=== PATIENT | male | born 1975 | race Caucasian/White ===

== ENCOUNTER 2025-03-22 13:21 | Inpatient (IN) ==
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
[2025-03-22] MEDS: KETOROLAC TROMETHAMINE 15 MG/ML VIAL IV STA (13:38)
[2025-03-22] MEDS: SODIUM CHLORIDE 0.9% 1,000 ML IV STA (13:38)
[2025-03-22 13:51] LABS: Hematocrit (blood only) 44.1 % (42.0-52.0); Hemoglobin 15.1 g/dl (14.0-18.0); Immature Granulocytes # (auto) 0.11 K/uL (0.01-0.20); Immature Granulocytes % (auto) 0.6 %; Mean Corpuscular Hemoglobin 29.4 pg (25.0-34.0); Mean Corpuscular Volume 85.8 fL (80.0-100.0); Platelet Count 246 K/uL (130-400); RDW Standard Deviation 40.0 fL (36.4-46.3); Red Blood Count 5.14 M/uL (4.70-6.10); White Blood Count 18.42 K/ul (4.8-10.8)
[2025-03-22 14:07] LABS: Alanine Aminotransferase 26.0 U/L (7-52); Albumin Globulin Ratio 1.8 (0.9-2); Alkaline Phosphatase 49.0 U/L (34-104); Anion Gap 6.0 (3-11); Bilirubin,Total 0.5 mg/dl (0.2-1.0); Blood Urea Nitrogen 21.0 mg/dl (6-23); Calcium 9.0 mg/dl (8.6-10.3); Carbon Dioxide 28.0 mmol/L (21-32); Chloride 106.0 mmol/L (98-107); Creatinine Clr Calc Pharmacy 80.7 ml/min; Globulin 2.5 gm/dl (2.5-4.0); Glucose 129.0 mg/dl (70-99(Fasting)); Lipase 20.0 U/L (11-82); Potassium 3.7 mmol/L (3.5-5.1); Sodium 140.0 mmol/L (136-145); Total Protein 7.1 gm/dl (6.0-8.3)
[2025-03-22] MEDS: OPTIRAY 320 100ml IV ONE (14:37)
--- NOTE | 2025-03-22 14:58 | CT Scan Report ---
CT lumbar spine w con CLINICAL HISTORY: pain COMPARISON STUDY: None FINDINGS: No lumbar spine fracture or subluxation seen. There is mild degenerative disc disease and f acet degeneration at the lower lumbar spine. There is mild neural foraminal narrowing at L4-5 and L5- S1 bilaterally. L5 is transitional with a pseudoarthrosis on the right. No significant central canal narrowing seen. IMPRESSION: 1. No lumbar spine fracture seen. 2. Mild lower lumbar degenerative changes. ACT 112: Negative or not required by law. Electronically signed by: Silvano Wild M.D. 03/22/2025 2:57 PM
--- NOTE | 2025-03-22 15:03 | CT Scan Report ---
CT SCAN OF THE ABDOMEN AND PELVIS WITH IV CONTRAST CLINICAL HISTORY: Sudden onset left flank pain. COMPARISON STUDY: None. TECHNIQUE: Following the IV administration of 94 cc of Optiray 320, CT scan of the abdomen and pelvis is performed from the lung bases to the proximal femora. Images are reviewed in the axial, sagittal, and coronal planes. IV contrast was administered without complication. A dose lowering technique was utilized adhering to the principles of ALARA. FINDINGS: Visual portions of the lung bases are unremarkable. No pneumatosis, free air or portal veno us gas is present. Several subcentimeter hypodense hepatic lesions are too small to characterize but likely benign. Spleen, adrenal glands, right kidney and pancreas are normal. There is no biliary or p ancreatic ductal dilatation. There is no peripancreatic or pericholecystic infiltration. Delayed left nephrogram is noted with mild left hydronephrosis. There is a 4 mm distal left ureteral calculus. Mo derate left perinephric and periureteral fluid is present. No additional urinary calculi are present. No evidence for a bowel obstruction. The appendix is normal. No lymphadenopathy. Major vasculature i s patent. IMPRESSION: 1. 4 mm distal left ureteral calculus with mild left hydronephrosis and delayed left nephrogram. Mode rate left perinephric and periureteral fluid. 2. No additional urinary calculi. ACT 112: Negative or not required by law. Electronically signed by: Prosper Darnell M.D. 03/22/2025 3:02 PM
[2025-03-22 15:25] LABS: Appearance Urine Clear (Clear); Bacteria Urine Automated None Seen (None Seen); Cast Urine Automated 0-2 /lpf (0-2); Epithelial Cell Urine Auto 0-2 /hpf (0-2); Glucose Urine UA Negative (Negative); RBC Urine Automated >20 /hpf (0-2); WBC Urine Automated 0-5 /hpf (0-5)
[2025-03-22] MEDS: cefTRIAXone SODIUM 2,000 MG/50 ML BAG IV STA (16:22)
--- NOTE | 2025-03-22 17:43 | History & Physical Report ---
Date of Service March 22, 2025 Assessment & Plan (1) Ureteral stone with hydronephrosis: (2) UTI (urinary tract infection): Plan This is a 49 y/o male with no significant PMH who presented to the ED today via EMS with abrupt onset of severe left flank pain. Work-up in the ED revealed an elevated WBC count at 18.42. CT abd/pel showed a 4 mm distal left ureteral calculus with mild left hydronephrosis and delayed left nephrogram; moderate left perinephric and periureteral fluid. Pt received morphine 20 mg IV en route to ED with resultant hypoxia on initial presentation but improvement in his pain. Pt referred for admission due to concern for infected ureteral stone for IV antibiotics and pain control. #Left distal ureteral calculus with mild left hydronephrosis #Leukocytosis - concern for early infection, pt afebrile, no tachycardia or hypotension UA showed trace protein, 2+ ketones, 3+ blood, trace leuk esterase but negative for nitrites; 0-5 WBC/hpf, >20 RBC/hpf. - Admit to med telemetry - Continue IV ceftriaxone started in the ED - Consult urology - spoke with Dr. Taylor who is on-call. Will make pt NPO after midnight. If pt deteriorates overnight, he will need to be notified - Tamsulosin to potentially help facilitate stone passage - Labs in the AM - CBC, BMP - IV Toradol for pain control #Hypoxia due to large dose of narcotics received en route to the ED - Wean O2 - respiratory status improved, no lethargy or mentation changes on evaluation at present Several subcentimeter hypodense hepatic lesions on CT that are too small to characterize but likely benign per radiology report. Will need to establish with a PCP outpatient Pt seen and reviewed with collaborating physician, Dr. Westfall. Plan of care discussed and as outlined above. Code status: full code DVT prophylaxis: SCDs I spent a total of 65 minutes coordinating, documenting, and providing care for this patient excluding time spent in the performance of separately billed services or time spent by another provider/QHP. Rhoda Granados PA-C History of Present Illness Chief Complaint: left flank pain Primary Care Provider: NO PCP This is a 49 y/o male with no significant PMH who presented to the ED today via EMS with abrupt onset of severe left flank pain. Pt reports he was in his usual state of health this morning when he woke up. He was sitting doing paperwork when he suddenly developed pain in his left lower back/flank that he describes as a sharp burning pain. The pain rapidly increased in severity to the point he had an episode of emesis and broke out in a sweat. He describes the pain as more severe than when he had an open fracture of his right forearm. Due to the severity of his pain, EMS was called. Reportedly pt received 20 mg of IV morphine en route to the hospital, which did help with his pain. 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 He has no prior history of kidney stones but reports that his mom has a history of nephrolithiasis. He denies fevers, dysuria, hematuria, changes in bowel patterns, cough, congestion, chest pain, palpitations, or dyspnea. Allergies Allergy/AdvReac Type Severity Reaction Status Date / Time No Known Allergies Allergy Unknown Verified 02/24/05 09:32 Home Medications Medication Instructions Recorded Confirmed Type No Known Home Medications 03/22/25 03/22/25 History Past Med/Surg History Problem List (Updated 03/22/25 @ 18:15 by Tiana Granados PA-C) UTI (urinary tract infection) Ureteral stone with hydronephrosis Medical History (Updated 03/22/25 @ 18:15 by Tiana Granados PA-C) Right forearm fracture farming accident Surgical History (Updated 03/22/25 @ 17:41 by Tiana Granados PA-C) History of surgery on arm ORIF fracture Family History (Updated 03/22/25 @ 17:21 by Tiana Granados PA-C) Mother Kidney stones Lymphoma Hypertension Sister Hypertension Social History (Updated 03/22/25 @ 17:41 by Tiana Granados PA-C) Smoking Status: Never smoker Hx Alcohol Use: Yes current occupational status: employed current occupation: car[employer] Feels Safe at Home: Yes Review of Systems Review of Systems: All systems reviewed & are unremarkable except as noted in Subjective Physical Exam Physical Exam: General: awake, alert, NAD HEENT: no scleral icterus, moist oral mucosa Neck: supple, trachea midline Heart: RRR Lungs: CTA bilaterally Abdomen: soft, NT, +BS, no CVA tenderness bilaterally Extremities: no pedal edema, distal pulses intact and equal Skin: warm, dry, no jaundice or rashes Results & Data Results & Data Vital Signs (Past 12 Hours) Vital Signs Temp Pulse Pulse Resp BP BP Pulse Ox 03/22/25 14:30 155/101 H 03/22/25 14:21 54 L 15 100 03/22/25 14:17 100 03/22/25 14:17 87 L 03/22/25 14:05 60 03/22/25 14:02 87 L 03/22/25 14:01 53 L 16 93 03/22/25 14:01 56 L 16 146/91 H 93 03/22/25 13:26 36.4 C L 59 L 20 157/97 H 100 O2 Del Method O2 Flow Rate 03/22/25 14:30 03/22/25 14:21 Nasal Cannula 2 03/22/25 14:17 Nasal Cannula 2 03/22/25 14:17 Room Air 03/22/25 14:05 03/22/25 14:02 Room Air, Nasal Cannula 0 03/22/25 14:01 Room Air 03/22/25 14:01 03/22/25 13:26 Room Air Laboratory Results Lab Results 03/22/25 03/22/25 Range/Units 13:35 15:05 WBC 18.42 H (4.8-10.8) K/ul RBC 5.14 (4.70-6.10) M/uL Hgb 15.1 (14.0-18.0) g/dl Hct 44.1 (42.0-52.0) % MCV 85.8 (80.0-100.0) fL MCH 29.4 (25.0-34.0) pg MCHC 34.2 (32.0-36.0) g/dL RDW Std Deviation 40.0 (36.4-46.3) fL RDW Coeff of Michelle 12.8 (11.5-14.5) % Plt Count 246 (130-400) K/uL MPV 9.6 (9.4-12.4) fL Immature Gran % (Auto) 0.6 % Neut % (Auto) 85.4 % Lymph % (Auto) 8.6 % [place] % (Auto) 4.8 % Eos % (Auto) 0.3 % Baso % (Auto) 0.3 % Neut # (Auto) 15.74 H (1.40-6.50) K/uL Lymph # (Auto) 1.58 (1.20-3.40) K/uL Harding # (Auto) 0.88 H (0.11-0.59) K/uL Eos # (Auto) 0.06 (0.00-0.50) K/uL Baso # (Auto) 0.05 (0.00-0.20) K/uL Immature Gran # (Auto) 0.11 (0.01-0.20) K/uL Sodium 140 (136-145) mmol/L Potassium 3.7 (3.5-5.1) mmol/L Chloride 106 (98-107) mmol/L Carbon Dioxide 28 (21-32) mmol/L Anion Gap 6 (3-11) BUN 21 (6-23) mg/dl Creatinine 1.06 (0.6-1.4) mg/dl Est Cr Clr Drug Dosing 80.7 ml/min eGFR 86.03 BUN/Creatinine Ratio 19.8 (10-20) Glucose 129 H (70-99(Fasting)) mg/dl Calcium 9.0 (8.6-10.3) mg/dl Total Bilirubin 0.5 (0.2-1.0) mg/dl AST 25 (13-39) U/L ALT 26 (7-52) U/L Alkaline Phosphatase 49 (34-104) U/L Total Protein 7.1 (6.0-8.3) gm/dl Albumin 4.6 (3.4-5.0) gm/dl Globulin 2.5 (2.5-4.0) gm/dl Albumin/Globulin Ratio 1.8 (0.9-2) Lipase 20 (11-82) U/L Urine Color Dark Yellow Urine Appearance Clear (Clear) Urine pH 7.0 (4.5-7.5) Ur Specific [place] 1.032 H (1.000-1.030) Urine Protein Trace H (Negative) Urine Glucose (UA) Negative (Negative) Urine Ketones 2+ H (Negative) Urine Blood 3+ H (Negative) Urine Nitrite Negative (Negative) Urine Bilirubin Negative (Negative) Urine Urobilinogen Negative (Negative) Ur Leukocyte Esterase Trace H (Negative) Urine WBC (Auto) 0-5 (0-5) /hpf Urine RBC (Auto) >20 H (0-2) /hpf U Hyaline Cast (Auto) 0-2 (0-2) /lpf U Epithel Cells (Auto) 0-2 (0-2) /hpf Urine Bacteria (Auto) None Seen (None Seen) Urine Comment Diagnostic Findings Abdomen/Pelvis CT 03/22/25 13:26 CT SCAN OF THE ABDOMEN AND PELVIS WITH IV CONTRAST CLINICAL HISTORY: Sudden onset left flank pain. COMPARISON STUDY: None. TECHNIQUE: Following the IV administration of 94 cc of Optiray 320, CT scan of the abdomen and pelvis is performed from the lung bases to the proximal femora. Images are reviewed in the axial, sagittal, and coronal planes. IV contrast was administered without complication. A dose lowering technique was utilized adhering to the principles of ALARA. FINDINGS: Visual portions of the lung bases are unremarkable. No pneumatosis, free air or portal venous gas is present. Several subcentimeter hypodense hepatic lesions are too small to characterize but likely benign. Spleen, adrenal glands, right kidney and pancreas are normal. There is no biliary or pancreatic ductal dilatation. There is no peripancreatic or pericholecystic infiltration. Delayed left nephrogram is noted with mild left hydronephrosis. There is a 4 mm distal left ureteral calculus. Moderate left perinephric and periureteral fluid is present. No additional urinary calculi are present. No evidence for a bowel obstruction. The appendix is normal. No lymphadenopathy. Major vasculature is patent. IMPRESSION: 1. 4 mm distal left ureteral calculus with mild left hydronephrosis and delayed left nephrogram. Moderate left perinephric and periureteral fluid. 2. No additional urinary calculi. ACT 112: Negative or not required by law. Electronically signed by: Prosper Darnell M.D. 03/22/2025 3:[address] 03/22/25 13:47 CT lumbar spine w con CLINICAL HISTORY: pain COMPARISON STUDY: None FINDINGS: No lumbar spine fracture or subluxation seen. There is mild degenerative disc disease and facet degeneration at the lower lumbar spine. There is mild neural foraminal narrowing at L4-5 and L5-S1 bilaterally. L5 is transitional with a pseudoarthrosis on the right. No significant central canal narrowing seen. IMPRESSION: 1. No lumbar spine fracture seen. 2. Mild lower lumbar degenerative changes. ACT 112: Negative or not required by law. Electronically signed by: Silvano Wild M.D. 03/22/2025 2:57 PM Medications Administered Discontinued Medications Sodium Chloride (Nss) 1,000 mls @ 999 mls/hr IV .Q1H1M STA Stop: 03/22/25 14:26 Last Infusion: 03/22/25 15:36 Dose: Infused Documented By: Admin: 03/22/25 13:38 Dose: 999 mls/hr Documented By: CARLI Ceftriaxone Sodium (Rocephin) 2,000 mg in 50 mls @ 100 mls/hr IV NOW STA Stop: 03/22/25 16:08 Last Infusion: 03/22/25 16:52 Dose: Infused Documented By: Admin: 03/22/25 16:22 Dose: 100 mls/hr Documented By: ROSIO Ioversol (Optiray 320 100ml) 94 ml IV ONCE ONE Stop: 03/22/25 14:38 Last Admin: 03/22/25 14:37 Dose: 94 ml Documented By: GEORGI Ketorolac Tromethamine (Ketorolac Tromethamine 15 Mg/Ml Vial) 10 mg IV NOW STA Stop: 03/22/25 13:27 Last Admin: 03/22/25 13:38 Dose: 10 mg Documented By: CARLI Supervising Physician Co-Signing Physician Notes Attending addendum: The patient was seen and examined in the emergency room He was admitted with acute left-sided abdominal pain that was going down to the groin and noted to have ureteric stone with obstruction Denies any fever and chills and has had nausea but no vomiting On examination Lying in bed very anxious Hemodynamically stable and afebrile Chest was clear to auscultation bilaterally HeartS1-S2, regular Abdomenmildly tender left lower quadrant and left renal angle is tender to palpate Extremities negative for any edema His admission labs and imaging studies noted Noted to hide white count and a 4 mm left distal ureteral calculus with hydronephrosis Assessment and plan Obstructive uropathy with likely infection Started on intravenous ceftriaxone and also IV fluid and was advised to drink more fluid Urology consulted Agree with assessment and plan as outlined above by Joie Granados PA-C and take the full responsibility of care in the hospital Dr Isidoro Westfall (2) UTI (urinary tract infection) Hematuria presence: without hematuria Urinary tract infection type: site unspecified Qualified Code(s): N39.0 - Urinary tract infection, site not specified
[2025-03-22] MEDS: SODIUM CHLORIDE 0.9% 1,000 ML IV SCH (19:21)
--- NOTE | 2025-03-22 19:52 | Urology Consultation ---
Date of Consultation March 22, 2025 Assessment & Plan (1) Ureteral stone with hydronephrosis: Patient has been admitted on hospital service. From a urologic standpoint we recommend the following: Provide analgesics Provide antiemetics Provide IV fluid for hydration Flomax has been initiated for expulsive therapy and should continue Urine should be strained and any kidney stones he passes should be saved for analysis There is concern the patient may have an underlying urinary tract infection. He has been placed on empiric Rocephin and this can be tailored based on pending culture results Patient to be made n.p.o. after midnight tonight. If he is unable to pass a kidney stone and is still giving him a great deal of pain consideration be given for cystoscopic intervention At the present time the patient is nontoxic-appearingshe is normotensive without tachycardia or fever. He also does not exhibit acute kidney injury therefore I feel a trial of conservative passage is warranted Additional recommendations be forthcoming based on his clinical course as it unfolds History of Present Illness Reason for Consultation: Nephrolithiasis History of Present Illness Is a 49-year-old male who presented to the emergency department secondary to left-sided flank pain. He says that the pain began approximate 9:00 AM this morning. He notes that the pain radiates to the front of his abdomen to his scrotum somewhat. He denies any dysuria or hematuria. Patient says he has not checked his temperature at home but he did have some sweats particular when he was having the pain. He has had occasional chills. He has no history of kidney stones before. Since arrival hospital the patient has had labs and imaging which I independently reviewed. Patient had a lumbar spine CT scan that showed no lumbar spine fractures seen. He also had a CT scan abdomen pelvis where he was noted to have a 4 mm distal left ureteral calculus with mild left hydronephro sis. Labs including CBC were white blood cell count was elevated 18.4. Hemoglobin and hematocrit as well as platelet count were normal. Chemistry profile showed sodium and potassium as well as the BUN and creatinine were normal. The urinalysis did have trace leukocyte Estrace but was otherwise not indicative of infection. At the time of my interview the patient's pain was well-controlled and he was in no distress. Allergies Allergy/AdvReac Type Severity Reaction Status Date / Time No Known Allergies Allergy Unknown Verified 02/24/05 09:32 Home Medications Medication Instructions Recorded Confirmed Type No Known Home Medications 03/22/25 03/22/25 History Patient History 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 Surgical History History of surgery on arm ORIF fracture Family History Mother Kidney stones Lymphoma Hypertension Sister Hypertension Social History Smoking Status: Never smoker Hx Alcohol Use: Yes current occupational status: employed current occupation: [employer] Feels Safe at Home: Yes Review of Systems Review of Systems: All systems reviewed & are unremarkable except as noted in HPI & below Physical Exam Constitutional: WD/WN, vitals as above Eyes: no conjunctival abnormality ENMT: Ears: no hearing impairment and no external ear abnormality Mouth: no oropharynx abnormality Neck: trachea midline Respiratory: normal respiratory effort; no respiratory distress and no labored breathing Cardiovascular: Rate/Rhythm: regular rate and regular rhythm Gastrointestinal (Abdomen): Abdomen is soft without distention. There is no rebound tenderness or guarding. There is no pain with palpation Musculoskeletal: No calf tenderness Skin: no rashes Neurologic: moves all extremities Psychiatric: A+Ox3, euthymic affect Genitourinary: At the time of my exam the patient did not have any CVA tenderness with percussion bilaterally Results & Data Vital Signs (Past 12 Hours) Vital Signs Temp Pulse Pulse Resp BP BP Pulse Ox 03/22/25 18:00 50 L 14 118/75 100 03/22/25 17:55 49 L 03/22/25 16:50 59 L 14 124/84 100 03/22/25 15:30 73 15 125/102 H 100 03/22/25 15:00 67 18 169/114 H 100 03/22/25 14:30 155/101 H 03/22/25 14:21 54 L 15 100 03/22/25 14:17 100 03/22/25 14:17 87 L 03/22/25 14:05 60 03/22/25 14:02 87 L 03/22/25 14:01 53 L 16 93 03/22/25 14:01 56 L 16 146/91 H 93 03/22/25 13:26 36.4 C L 59 L 20 157/97 H 100 O2 Del Method O2 Flow Rate 03/22/25 18:00 Nasal Cannula 2 03/22/25 17:55 03/22/25 16:50 Nasal Cannula 2 03/22/25 15:30 Nasal Cannula 2 03/22/25 15:00 03/22/25 14:30 03/22/25 14:21 Nasal Cannula 2 03/22/25 14:17 Nasal Cannula 2 03/22/25 14:17 Room Air 03/22/25 14:05 03/22/25 14:02 Room Air, Nasal Cannula 0 03/22/25 14:01 Room Air 03/22/25 14:01 03/22/25 13:26 Room Air PG Care Time/CCT Total # of Minutes Spent Total Time Spent with Patient: Total time spent is greater than 50% in coordination of care (as documented) at patient's floor/unit and/or counseling patient: Coding Level of Care Code 39004 IN/OBS CONSULT LVL 5,80M Diagnoses Ureteral stone with hydronephrosis N13.2
[2025-03-22 20:43] VITALS: RESP 18
[2025-03-22] MEDS ORDERED: ACETAMINOPHEN 500 MG TAB PO PRN (21:22)
[2025-03-22 22:20] VITALS: O2SAT 96
[2025-03-22] MEDS: TAMSULOSIN HCL 0.4 MG CAP PO SCH (22:56)
[2025-03-23] MEDS: KETOROLAC TROMETHAMINE 15 MG/ML VIAL IV PRN (01:29)
[2025-03-23 06:15] LABS: Hematocrit (blood only) 37.5 % (42.0-52.0); Hemoglobin 12.7 g/dl (14.0-18.0); Immature Granulocytes # (auto) 0.04 K/uL (0.01-0.20); Immature Granulocytes % (auto) 0.3 %; Mean Corpuscular Hemoglobin 29.7 pg (25.0-34.0); Mean Corpuscular Volume 87.6 fL (80.0-100.0); Platelet Count 206 K/uL (130-400); RDW Standard Deviation 42.2 fL (36.4-46.3); Red Blood Count 4.28 M/uL (4.70-6.10); White Blood Count 11.48 K/ul (4.8-10.8)
[2025-03-23 06:37] LABS: Anion Gap 5.0 (3-11); Blood Urea Nitrogen 16.0 mg/dl (6-23); Calcium 7.8 mg/dl (8.6-10.3); Carbon Dioxide 26.0 mmol/L (21-32); Chloride 107.0 mmol/L (98-107); Creatinine Clr Calc Pharmacy 121.1 ml/min; Glucose 104.0 mg/dl (70-99(Fasting)); Potassium 3.6 mmol/L (3.5-5.1); Sodium 138.0 mmol/L (136-145)
[2025-03-23] MEDS ORDERED: ONDANSETRON INJ 2 MG/ML 2 ML VIAL IV PRN (08:08)
--- NOTE | 2025-03-23 08:30 | Urology Progress Note ---
Date of Service March 23, 2025 Assessment & Plan (1) Ureteral stone with hydronephrosis: (2) Leukocytosis: Plan 49-year-old male with a 4 mm left distal ureteral calculus I had a long discussion with him about options. He could be discharged home on medical expulsive therapy. Discussed that he has roughly 60% chance of passing the stone but data says that this could be anytime over the next 30 days. Discussed indications for returning to the hospital, including worsening pain or fevers. Other option would be to have a stent placed but explained that stents can cause bothersome symptoms as well. Discussed there would be a low likelihood that we would remove the stone at this time and that he would likely need a second procedure in the following weeks. Patient's leukocytosis has improved so I suspect this was likely due to dehydration as he is not showing any signs of infection and his urinalysis was negative Ultimately, patient would like to try medical expulsive therapy and I recommend discharging him with Flomax and oxycodone. 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 Afebrile with stable vitals. Labs today show white count has down trended from 18-11, creatinine down trended from 1-0.8. Patient reports pain is improved this morning. Denies passage of stone but did not strain all of his voids. Physical Exam Physical Exam: General: Alert and oriented, no acute distress HEENT: Normocephalic, mucous membranes moist Pulmonary: Nonlabored respirations Abdomen: Nondistended Extremities: Moves all 4 spontaneously Neuro: No gross deficits Skin: Warm, dry, no rashes noted Results & Data Vital Signs (Past 12 Hours) Vital Signs Temp Pulse Pulse Resp BP BP Pulse Ox 03/22/25 22:08 36.5 C 79 18 166/90 H 96 03/22/25 20:43 48 L 18 115/75 99 O2 Del Method 03/22/25 22:08 Room Air 03/22/25 20:43 Room Air PG Care Time/CCT Total # of Minutes Spent Total Time Spent with Patient: Total time spent is greater than 50% in coordination of care (as documented) at patient's floor/unit and/or counseling patient: Coding Level of Care Code 95638 SUB INP/OBS CARE 2MIN Diagnoses Ureteral stone with hydronephrosis N13.2 Leukocytosis D72.829
[2025-03-23 08:36] VITALS: BP 124/67; PULSE 72; TEMP 98.1
--- NOTE | 2025-03-23 12:26 | Discharge Summary ---
Discharge Summary Date of Service March 23, 2025 Principal Dx & Hospital Course #1 = Principal Diagnosis (1) Ureteral stone with hydronephrosis: (2) UTI (urinary tract infection): Plan This is a 49 y/o male with no significant PMH who presented to the ED today via EMS with abrupt onset of severe left flank pain. Work-up in the ED revealed an elevated WBC count at 18.42. CT abd/pel showed a 4 mm distal left ureteral calculus with mild left hydronephrosis and delayed left nephrogram; moderate left perinephric and periureteral fluid. Pt received morphine 20 mg IV en route to ED with resultant hypoxia on initial presentation but improvement in his pain. Pt referred for admission due to concern for infected ureteral stone for IV antibiotics and pain control. #Left distal ureteral calculus with mild left hydronephrosis #Leukocytosis - concern for early infection, pt afebrile, no tachycardia or hypotension UA showed trace protein, 2+ ketones, 3+ blood, trace leuk esterase but negative for nitrites; 0-5 WBC/hpf, >20 RBC/hpf. - Admit to med telemetry - Continue IV ceftriaxone started in the ED - Consult urology - spoke with Dr. Taylor who is on-call. Will make pt NPO after midnight. If pt deteriorates overnight, he will need to be notified - Tamsulosin to potentially help facilitate stone passage - Labs in the AM - CBC, BMP - IV Toradol for pain control #Hypoxia due to large dose of narcotics received en route to the ED - Wean O2 - respiratory status improved, no lethargy or mentation changes on evaluation at present Several subcentimeter hypodense hepatic lesions on CT that are too small to characterize but likely benign per radiology report. Will need to establish with a PCP outpatient Pt seen and reviewed with collaborating physician, Dr. Westfall. Plan of care discussed and as outlined above. Code status: full code DVT prophylaxis: SCDs I spent a total of 65 minutes coordinating, documenting, and providing care for this patient excluding time spent in the performance of separately billed services or time spent by another provider/QHP. Rhoda Granados PA-C Notes For Next Care Provider his is a 49 y/o male with no significant PMH who presented to the ED today via EMS with abrupt onset of severe left flank pain. In ED, found to have 4mm renal stone, admitted to medicine. Urology consulted, recommended pain control and fluids, and conservative management. Reevaluation by urology resulted in recommendation for f/u outpatient, hydration, pain control, and medical therapy. On 03/23/2025 patient medically stable for discharge home. To do: [ ] f/u with urology outpatient Medication Changes From Visit -see below Admission HPI Per Admitting Provider This is a 49 y/o male with no significant PMH who presented to the ED today via EMS with abrupt onset of severe left flank pain. Pt reports he was in his usual state of health this morning when he woke up. He was sitting doing paperwork when he suddenly developed pain in his left lower back/flank that he describes as a sharp burning pain. The pain rapidly increased in severity to the point he had an episode of emesis and broke out in a sweat. He describes the pain as more severe than when he had an open fracture of his right forearm. Due to the severity of his pain, EMS was called. Reportedly pt received 20 mg of IV morphine en route to the hospital, which did help with his pain. 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 He has no prior history of kidney stones but reports that his mom has a history of nephrolithiasis. He denies fevers, dysuria, hematuria, changes in bowel patterns, cough, congestion, chest pain, palpitations, or dyspnea. Discharge Exam Gen: A&O 3 NAD HEENT: NCAT, EOMI, not icteric. External ears normal. No rhinorrhea. Moist mucous membranes. Neck: Supple, full range of motion, no observable masses, No meningeal sign. Lungs: No Respiratory distress. CV: RRR, no edema. Abdomen: Soft, nondistended, No rebound tenderness. MSK: No joint swelling, no redness. Skin: No rashes, petechiae, lesions. Normal color per patient. Neuro: Normal Gait, Grossly intact. Psych: Appropriate for situation. Updated Medication List Medication Instructions Recorded Confirmed Type ondansetron 4 mg disintegrating 4 mg PO Q4H PRN nausea and 03/23/25 Rx tablet vomiting #14 tabs oxycodone 5 mg tablet 5 mg PO Q4 PRN pain #20 tabs 03/23/25 Rx tamsulosin 0.4 mg capsule 0.4 mg PO HS #30 caps 03/23/25 Rx Hospital Stay Data Consultations 03/22/25 16:58 ED Decision to Admit Stat 03/22/25 21:22 Consult Urology Routine Diagnostic Imagining Performed 03/22/25 13:26 CT abd pelvis IV con only Stat 03/22/25 13:47 CT lumbar spine w con Stat Pending Results Patient Have Any Pending Studies at Discharge: No Discharge Instructions Given to Patient (Per Discharging Provider) 1. Please follow up with PCP and urology. 2. Take pain medication/symptom medications for any stone related symptoms. 3. Please stay very hydrated and avoid alcohol/dehydrating fluids. 4. Finish course of antibiotics. 5. Take medications as prescribed. Total Time Total Time Spent Total Time Spent (In Minutes): I spent a total of 35 minutes in direct patient care, including [id number] time with the patient and/or family, reviewing medical records, ordering and reviewing diagnostic tests, and coordinating care with other healthcare providers. This time includes: history taking, physical examination, medical decision making, counseling, ECG interpretation, imaging interpretation, lab interpretation, orders, and education, excluding time spent in the performance of separately billed services.
[2025-03-23] MEDS ORDERED: cefTRIAXone SODIUM 2,000 MG/50 ML BAG IV SCH (14:00)
== END 2025-03-23 11:10 | disposition home or self-care (01) | DRG 694 ==
LOC: ED 13:21 → 3N 17:45 → SUATTDRO 17:45 → 3N 20:43

== ENCOUNTER 2025-03-23 16:12 | Observation (INO) ==
[2025-03-23] MEDS: ONDANSETRON INJ 2 MG/ML 2 ML VIAL IV STA (16:26)
[2025-03-23] MEDS: ONDANSETRON INJ 2 MG/ML 2 ML VIAL ONE (16:26)
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
[2025-03-23] MEDS: KETOROLAC TROMETHAMINE 15 MG/ML VIAL IV ONE (16:29)
[2025-03-23 17:01] LABS: Hematocrit (blood only) 42.1 % (42.0-52.0); Hemoglobin 14.4 g/dl (14.0-18.0); Immature Granulocytes # (auto) 0.04 K/uL (0.01-0.20); Immature Granulocytes % (auto) 0.4 %; Mean Corpuscular Hemoglobin 29.9 pg (25.0-34.0); Mean Corpuscular Volume 87.5 fL (80.0-100.0); Platelet Count 243 K/uL (130-400); RDW Standard Deviation 41.9 fL (36.4-46.3); Red Blood Count 4.81 M/uL (4.70-6.10); White Blood Count 10.62 K/ul (4.8-10.8)
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
[2025-03-23 17:18] LABS: Anion Gap 6.0 (3-11); Blood Urea Nitrogen 17.0 mg/dl (6-23); Calcium 8.7 mg/dl (8.6-10.3); Carbon Dioxide 28.0 mmol/L (21-32); Chloride 105.0 mmol/L (98-107); Creatinine Clr Calc Pharmacy 92.5 ml/min; Glucose 121.0 mg/dl (70-99(Fasting)); Potassium 3.9 mmol/L (3.5-5.1); Sodium 139.0 mmol/L (136-145)
[2025-03-23] MEDS: LACTATED RINGER'S 1,000 ML IV SCH (19:25)
[2025-03-23] MEDS: cefTRIAXone SODIUM 2,000 MG/50 ML BAG IV SCH (19:26)
[2025-03-23] MEDS: TAMSULOSIN HCL 0.4 MG CAP PO SCH (21:34)
[2025-03-23] MEDS: KETOROLAC TROMETHAMINE 15 MG/ML VIAL IV SCH (21:36)
[2025-03-24] MEDS: HYDROmorphone INJ 0.5 MG/0.5 ML SYR IV PRN ×2 (01:18→09:55)
[2025-03-24] MEDS: ONDANSETRON INJ 2 MG/ML 2 ML VIAL IV PRN (06:33)
[2025-03-24] MEDS ORDERED: PROPOFOL IV EMULSION 10 MG/ML 20 ML VIAL IV ONE (09:08)
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
[2025-03-24] MEDS ORDERED: MIDAZOLAM HCL 1 MG/ML 2ML VIAL ONE (10:26)
[2025-03-24] MEDS ORDERED: ATROPINE SULFATE 0.1 MG/ML 10ML SYR IV PRN (10:27)
[2025-03-24] MEDS ORDERED: HYDROmorphone INJ 1 MG/ML SYRINGE IV PRN (10:27)
[2025-03-24] MEDS ORDERED: ONDANSETRON INJ 2 MG/ML 2 ML VIAL IV PRN (10:27)
--- NOTE | 2025-03-24 10:28 | Anesthesiology Consultation ---
Date of Service March 24, 2025 Assessment & Plan ASA ASA2 Proposed Anesthesia Anesthesia Type: General Risk / Benefits Reviewed With: PT / POA / Parent / Guardian, Accepts Plan and Informed Consent Obtained History Surgery Operation Date: 03/24/25 09:30 Proposed Procedures p Cystoscopy Retrograde(Left) - Buddy Loco MD Height/Weight Height: 6 ft Weight: 85.2 kg Allergies Allergy/AdvReac Type Severity Reaction Status Date / Time No Known Allergies Allergy Unknown Verified 02/24/05 09:32 Medications Home Medications Medication Instructions Recorded Confirmed Last Taken ondansetron 4 mg disintegrating 4 mg PO Q4H PRN nausea and 03/23/25 03/23/25 Unknown tablet vomiting #14 tabs oxycodone 5 mg tablet 5 mg PO Q4 PRN pain #20 tabs 03/23/25 03/23/25 Unknown tamsulosin 0.4 mg capsule 0.4 mg PO HS #30 caps 03/23/25 03/23/25 Unknown Active Medications Generic Name Dose Route Start Last Admin Trade Name Freq PRN Reason Stop Dose Admin Hydromorphone HCl 0.5 mg 03/24/25 09:24 03/24/25 09:55 Hydromorphone Inj 0.5 Mg/0.5 Ml Syr IV 04/06/25 17:11 0.5 mg Q2HWA PRN Administration Severe Pain (Scale 7, 8, 9,10) Lactated Ringer's 1,000 mls @ 125 mls/hr 03/23/25 17:15 03/24/25 03:11 Lr IV 03/26/25 17:14 125 mls/hr .Q8H DEEJAY Administration Ceftriaxone Sodium 2,000 mg in 50 mls @ 100 mls/hr 03/23/25 17:30 03/23/25 20:00 Rocephin IV 03/30/25 17:29 Infused Q24H DEEJAY Infusion Ondansetron HCl 4 mg 03/23/25 18:11 03/24/25 06:33 Ondansetron Inj 2 Mg/Ml 2 Ml Vial IV 04/22/25 18:10 4 mg Q6H PRN Administration Nausea Tamsulosin HCl 0.4 mg 03/23/25 21:00 03/23/25 21:34 Tamsulosin Hcl 0.4 Mg Cap PO 04/22/25 20:59 0.4 mg HS DEEJAY Administration NPO Date Last Intake of Fluids: 03/23/25 Time Last Intake of Fluids: 23:00 Date Last Intake of Solids: 03/23/25 Time Last Intake of Solids: 23:00 Past Medical History 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 Exercise / Class Metabolic Activity II 4-5 Yardwork/Stairs/Walk up hill Past Family History Family History Mother Kidney stones Lymphoma Hypertension Sister Hypertension Past Surgical History Surgical History History of surgery on arm ORIF fracture Past Anesthesia History No Hx of Anesthesia Complications and No Family Hx of Anesthesia Complications History of PONV No Hx of PONV and No Hx of Motion Sickness Social History Smoking Status: Never smoker Do You Dip or Chew Tobacco: No Hx Alcohol Use: No Hx Substance Use: No Review of Systems denies fever/cough/ colds/ chest pain/ SOB/ KIM denies KIM Physical Exam Vital Signs Last Vital Signs Temp 36.8 C 03/24/25 07:24 Pulse 76 03/24/25 07:24 Resp 16 03/24/25 07:24 BP 122/80 03/24/25 07:24 Pulse Ox 96 03/24/25 07:24 O2 Del Method Room Air 03/24/25 07:24 ENMT Mouth: no TMJ abnormality and no dentition abnormality Thyromental Distance: > or= 3.5 Finger Breadths Mallampati Class: II Neck neck extension not limited Respiratory normal respiratory effort; no respiratory distress Auscultation: lungs clear to auscultation bilaterally Cardiovascular Rate/Rhythm: regular rate and regular rhythm Neurologic moves all extremities Psychiatric Orientation: alert and oriented x 3 Testing Laboratory Results 03/23/25 16:26 03/23/25 16:26
[2025-03-24] MEDS ORDERED: KETAMINE HCL 10MG/ML SYR ONE (10:36)
[2025-03-24] MEDS ORDERED: ONDANSETRON INJ 2 MG/ML 2 ML VIAL ONE (10:51)
[2025-03-24] MEDS: DIATRIZOATE MEGLUMINE 30% 100ML VIAL INSTIL ONE (11:09)
--- NOTE | 2025-03-24 11:20 | Operative Report ---
PG Post Operative Report Pre & Post Diagnosis Operation Date: 03/24/25 09:30 Pre-Op Diagnosis: Left Ureteral Calculus Post-Op Diagnosis: Left Ureteral Calculus I identified the patient and participated in the time-out.: Yes Procedure Operation Date: 03/24/25 09:30 Actual Procedures p Cystoscopy, Ureteroscopy, Retrograde Pyelogram, Laser Lithotripsy, Basket E xtraction, Insertion of Stent Catheter- Left(Left) - Buddy Loco MD Surgeon Buddy Loco MD Kennel Manager Dog Track None Estimated Blood Loss 0 Findings See Below Stone in distal ureter, lasered and fragments basketed out. Retrograde showed no extravasation. Stent in appropriate position. Specimens Left ureteral calculus Drains 6 Lithuanian by 26 cm left ureteral stent with extraction string Anesthesia Type MAC Complications none Indications 49-year-old male who failed medical expulsive therapy for a 4 mm left distal ureteral calculus Description of Procedure After informed consent was obtained, the patient was transported to the operative suite. MAC anesthesia was induced. They were placed in dorsal lithotomy position and prepped and draped in sterile fashion. They received preoperative ceftriaxone. An appropriate surgical timeout was performed. Rigid cystoscope was inserted per urethra in the bladder. I turned my attention the left ureteral orifice and advanced a sensor wire in the pole the kidney. Cystoscope was removed. Needle tip long semirigid ureteroscope was advanced into the ureter and the stone was encountered. A 200 m thulium laser fiber was inserted and the stone was fragmented into smaller pieces. These were basketed out and dropped in the bladder using a 0 tip Nitinol basket. Remainder of ureter was free of stones or injuries. Retrograde was shot through the scope which showed no extravasation. Semirigid ureteroscope was removed. Cystoscope was backloaded over the wire and a 6 Lithuanian by 26 cm left ureteral stent was deployed with good proximal coil in the kidney and a good distal coil in the bladder. Bladder was emptied and scope was removed. String was taped to the penis using benzoin and a Tegaderm. This concluded the end of the case. All counts correct at the end of the case. I was present scrubbed and actively participated for the entirety of the procedure. I attest to the content of the Intraoperative Record and any orders documented therein. Any exceptions are noted below.
--- NOTE | 2025-03-24 11:41 | Fluoroscopy Report ---
INTRAOPERATIVE FLUOROSCOPIC IMAGES: CLINICAL HISTORY: Stone. COMPARISON: CT of the abdomen and pelvis March 22, 2025. Fluoroscopy time: 11 seconds. Number of fluoroscopic images: 1 Ka,r: 2.32 mGy: FINDINGS: Fluoroscopy was provided during left retrograde exam, lithotripsy and left ureteral stent i nsertion. Proximal aspect of the stent projects over the left renal pelvis. IMPRESSION: Fluoroscopy provided during left retrograde exam, lithotripsy and left ureteral stent ins ertion. Electronically signed by: Prosper Darnell M.D. 03/24/2025 11:39 AM
--- NOTE | 2025-03-24 12:22 | Anesthesiology Progress Note ---
Date of Service March 24, 2025 Anesthesia Post Procedure Vital Signs Vital Signs: Temp Pulse Pulse Pulse Resp BP BP 03/24/25 11:55 36.7 C 60 16 151/97 H 03/24/25 11:40 36.6 C 59 L 16 140/90 03/24/25 11:30 63 12 153/98 H 03/24/25 11:24 36.8 C 77 16 140/100 03/24/25 07:24 36.8 C 76 16 122/80 03/23/25 19:12 36.5 C 50 L 16 117/76 03/23/25 18:44 36.8 C 54 L 16 03/23/25 17:55 03/23/25 17:28 57 L 20 03/23/25 16:37 65 03/23/25 16:12 36.4 C L 73 22 160/106 H BP Pulse Ox O2 Del Method O2 Flow Rate 03/24/25 11:55 99 Room Air 03/24/25 11:40 95 Room Air 03/24/25 11:30 100 Oxymask 2 03/24/25 11:24 98 Oxymask 4 03/24/25 07:24 96 Room Air 03/23/25 19:12 98 Room Air 03/23/25 18:44 125/84 97 Room Air 03/23/25 17:55 Room Air 03/23/25 17:28 134/88 99 Room Air 03/23/25 16:37 03/23/25 16:12 97 Room Air Transfer of Care Handoff Completed per policy Notes Mental Status: alert / awake / arousable and participated in evaluation Patient Amnestic to Procedure: Yes Nausea / Vomiting: adequately controlled Pain: adequately controlled Airway Patency, RR, SpO2: stable & adequate BP & HR: stable & adequate Hydration State: stable & adequate Anesthetic Complications: no major complications apparent and Pt Satisfied with anesthetic care
--- NOTE | 2025-03-24 12:38 | Hospitalist Progress Note ---
Date of Service March 24, 2025 Assessment & Plan (1) Ureteral stone with hydronephrosis: Plan: -"4 mm distal left ureteral calculus with mild left hydronephrosis and delayed left nephrogram. Moderate left perinephric and periureteral fluid." -patient declined intervention earlier this morning -failure of outpatient treatment due to pain, nausea, and vomiting Plan: -urology consult, appreciate recs -pain control with dilaudid for now, deescalate post op -stent placement today -continue tamulosin (2) UTI (urinary tract infection): Plan: -finish 5 day course of abx Plan I spent a total of 40 minutes in direct patient care, including [id number] time with the patient and/or family, reviewing medical records, ordering and reviewing diagnostic tests, and coordinating care with other healthcare providers. This time includes: history taking, physical examination, medical decision making, counseling, ECG interpretation, imaging interpretation, lab interpretation, orders, and education, excluding time spent in the performance of separately billed services. Admission and Anticipated Discharge Date Admission Date: March 23, 2025 Subjective Patient seen and examined at bedside. States "that oxy doesnt work, that IV stuff does though". Otherwise sitting comfortably in room waiting for procedure. Review of Systems Review of Systems: CONSTITUTIONAL: Patient denies fevers, chills, sweats and weight changes. EYES: Patient denies any visual symptoms. EARS, NOSE, AND THROAT: No difficulties with hearing. No symptoms of rhinitis or sore throat. CARDIOVASCULAR: Patient denies chest pains, palpitations, orthopnea and paroxysmal nocturnal dyspnea. RESPIRATORY: No dyspnea on exertion, no wheezing or cough. GI: No nausea, vomiting, diarrhea, constipation, abdominal pain, hematochezia or melena. : No urinary hesitancy or dribbling. No nocturia or urinary frequency. No abnormal urethral discharge. MUSCULOSKELETAL: left sided flank pain NEUROLOGIC: No chronic headaches, no seizures. Patient denies numbness, tingling or weakness. PSYCHIATRIC: Patient denies problems with mood disturbance. No problems with anxiety. ENDOCRINE: No excessive urination or excessive thirst. DERMATOLOGIC: Patient denies any rashes or skin changes. Physical Exam Physical Exam: Gen: A&O 3 NAD HEENT: NCAT, EOMI, not icteric. External ears normal. No rhinorrhea. Moist mucous membranes. Neck: Supple, full range of motion, no observable masses, No meningeal sign. Lungs: No Respiratory distress. CV: RRR, no edema. Abdomen: Soft, nondistended, No rebound tenderness. MSK: No joint swelling, no redness. left sided flank pain, positive CVA tenderness on left side, similar to last night Skin: No rashes, petechiae, lesions. Normal color per patient. Neuro: Normal Gait, Grossly intact. Psych: Appropriate for situation. Results & Data Results & Data Vital Signs (Past 12 Hours) Vital Signs Temp Pulse Pulse Resp BP Pulse Ox O2 Del Method 03/24/25 11:55 36.7 C 60 16 151/97 H 99 Room Air 03/24/25 11:40 36.6 C 59 L 16 140/90 95 Room Air 03/24/25 11:30 63 12 153/98 H 100 Oxymask 03/24/25 11:24 36.8 C 77 16 140/100 98 Oxymask 03/24/25 07:24 36.8 C 76 16 122/80 96 Room Air O2 Flow Rate 03/24/25 11:55 03/24/25 11:40 03/24/25 11:30 2 03/24/25 11:24 4 03/24/25 07:24 Laboratory Results -personally reviewed, no leukocytosis, creatinine at baseline Medications Administered Hydromorphone HCl (Hydromorphone Inj 0.5 Mg/0.5 Ml Syr) 0.5 mg IV Q2HWA PRN PRN Reason: Severe Pain (Scale 7, 8, 9,10) Stop: 04/06/25 17:11 Last Admin: 03/24/25 09:55 Dose: 0.5 mg Documented By: JOAO Lactated Ringer's (Lr) 1,000 mls @ 125 mls/hr IV .Q8H DEEJAY Stop: 03/26/25 17:14 Last Infusion: 03/24/25 12:31 Dose: 125 mls/hr Documented By: Infusion: 03/24/25 10:37 Dose: 0 mls/hr Documented By: Admin: 03/24/25 03:11 Dose: 125 mls/hr Documented By: Infusion: 03/24/25 03:10 Dose: Infused Documented By: Admin: 03/23/25 19:25 Dose: 125 mls/hr Documented By: OTTONIEL Ceftriaxone Sodium (Rocephin) 2,000 mg in 50 mls @ 100 mls/hr IV Q24H COUNT INCLUDES THE [facility] Stop: 03/30/25 17:29 Last Infusion: 03/23/25 20:00 Dose: Infused Documented By: Admin: 03/23/25 19:26 Dose: 100 mls/hr Documented By: OTTONIEL Ondansetron HCl (Ondansetron Inj 2 Mg/Ml 2 Ml Vial) 4 mg IV Q6H PRN PRN Reason: Nausea Stop: 04/22/25 18:10 Last Admin: 03/24/25 06:33 Dose: 4 mg Documented By: OTTONIEL Tamsulosin HCl (Tamsulosin Hcl 0.4 Mg Cap) 0.4 mg PO HS COUNT INCLUDES THE [facility] Stop: 04/22/25 20:59 Last Admin: 03/23/25 21:34 Dose: 0.4 mg Documented By: OTTONIEL
[2025-03-24] MEDS: ACETAMINOPHEN 500 MG TAB PO PRN (20:04)
[2025-03-25 07:14] VITALS: RESP 16
[2025-03-25 07:29] LABS: Hematocrit (blood only) 37.1 % (42.0-52.0); Hemoglobin 12.6 g/dl (14.0-18.0); Mean Corpuscular Hemoglobin 29.5 pg (25.0-34.0); Mean Corpuscular Volume 86.9 fL (80.0-100.0); Platelet Count 192 K/uL (130-400); RDW Standard Deviation 40.7 fL (36.4-46.3); Red Blood Count 4.27 M/uL (4.70-6.10); White Blood Count 10.47 K/ul (4.8-10.8)
[2025-03-25 07:47] LABS: Anion Gap 4.0 (3-11); Blood Urea Nitrogen 8.0 mg/dl (6-23); Calcium 8.4 mg/dl (8.6-10.3); Carbon Dioxide 32.0 mmol/L (21-32); Chloride 105.0 mmol/L (98-107); Creatinine Clr Calc Pharmacy 124.1 ml/min; Glucose 109.0 mg/dl (70-99(Fasting)); Potassium 3.8 mmol/L (3.5-5.1); Sodium 141.0 mmol/L (136-145)
--- NOTE | 2025-03-25 08:57 | Urology Progress Note ---
Date of Service March 25, 2025 Assessment & Plan (1) Ureteral stone with hydronephrosis: Plan 49-year-old male with a left UVJ calculus status post stone treatment and stent placement on 03/24/2025. Patient feeling subjectively better Stent removed at the bedside Patient stable for discharge home. Recommended Tylenol, ibuprofen and breakthrough oxycodone for pain. Follow-up message has been sent Admission and Anticipated Discharge Date Admission Date: March 23, 2025 Subjective Patient is status post stone treatment and stent placement yesterday. Afebrile with stable vitals. Labs today show stable white blood cell count, relatively stable hemoglobin and creatinine has down trended from 1.06-0.79 Patient reports feeling much better today. Physical Exam Physical Exam: General: Alert and oriented, no acute distress HEENT: Normocephalic, mucous membranes moist Pulmonary: Nonlabored respirations Abdomen: Nondistended : String taped to shaft of penis Extremities: Moves all 4 spontaneously Neuro: No gross deficits Skin: Warm, dry, no rashes noted Results & Data Vital Signs (Past 12 Hours) Vital Signs Temp Pulse Resp BP Pulse Ox O2 Del Method 03/25/25 07:14 36.7 C 60 16 144/87 H 96 Room Air 03/25/25 03:32 37.1 C 68 12 137/91 96 Room Air 03/24/25 23:18 37.1 C 54 L 14 134/81 96 Room Air PG Care Time/CCT Total # of Minutes Spent Total Time Spent with Patient: Total time spent is greater than 50% in coordination of care (as documented) at patient's floor/unit and/or counseling patient: Coding Level of Care Code 05886 SUB INP/OBS CARE 2/35MIN Diagnoses Ureteral stone with hydronephrosis N13.2
[2025-03-25 11:20] VITALS: PULSE 55; TEMP 98.8; O2SAT 98
[2025-03-25] MEDS: HYDROmorphone INJ 0.5 MG/0.5 ML SYR IV PRN (12:16)
--- NOTE | 2025-03-25 12:23 | Discharge Summary ---
Discharge Summary Date of Service March 25, 2025 Principal Dx & Hospital Course #1 = Principal Diagnosis (1) Ureteral stone with hydronephrosis: -"4 mm distal left ureteral calculus with mild left hydronephrosis and delayed left nephrogram. Moderate left perinephric and periureteral fluid." -patient declined intervention earlier this morning -failure of outpatient treatment due to pain, nausea, and vomiting Plan: -urology consult, appreciate recs -pain control with dilaudid for now, deescalate post op -stent placement today -continue tamulosin (2) UTI (urinary tract infection): -finish 5 day course of abx Notes For Next Care Provider 49 y/o male with no significant PMH who presented earlier today to the ED today via EMS with abrupt onset of severe left flank pain. In ED, found to have 4mm renal stone, admitted to medicine. Urology consulted, recommended pain control and fluids, and conservative management. Reevaluation by urology resulted in recommendation for f/u outpatient, hydration, pain control, and medical therapy. On 03/23/2025 patient medically stable for discharge home. Returned to hospital on 03/23/2025 after pain began again, after patient politely declined procedure earlier in the day, now wants procedure done. Procedure done on 03/24/2025, observed overnight, pain controlled. Stent removed on 03/25/2025 by urology, medically stable for discharge home by urology and medicine. To do: [ ] f/u with urology Medication Changes From Visit -see below Admission HPI Per Admitting Provider 49 y/o male with no significant PMH who presented earlier today to the ED today via EMS with abrupt onset of severe left flank pain. In ED, found to have 4mm renal stone, admitted to medicine. Urology consulted, recommended pain control and fluids, and conservative management. Reevaluation by urology resulted in recommendation for f/u outpatient, hydration, pain control, and medical therapy. On 03/23/2025 patient medically stable for discharge home. Returned to hospital on 03/23/2025 after pain began again, after patient politely declined procedure earlier in the day, now wants procedure done. Patient seen and examined at bedside. Having same pain as earlier in the day on the left flank. States he tried taking oxycodone but it did not work. Is having some nausea and vomiting as well. No other symptoms at this time. Discharge Exam Gen: A&O 3 NAD HEENT: NCAT, EOMI, not icteric. External ears normal. No rhinorrhea. Moist mucous membranes. Neck: Supple, full range of motion, no observable masses, No meningeal sign. Lungs: No Respiratory distress. CV: RRR, no edema. Abdomen: Soft, nondistended, No rebound tenderness. MSK: No joint swelling, no redness. improved back pain Skin: No rashes, petechiae, lesions. Normal color per patient. Neuro: Normal Gait, Grossly intact. Psych: Appropriate for situation. Updated Medication List Medication Instructions Recorded Confirmed Type ondansetron 4 mg disintegrating 4 mg PO Q4H PRN nausea and 03/23/25 03/23/25 Rx tablet vomiting #14 tabs oxycodone 5 mg tablet 5 mg PO Q4 PRN pain #20 tabs 03/23/25 03/23/25 Rx tamsulosin 0.4 mg capsule 0.4 mg PO HS #30 caps 03/23/25 03/23/25 Rx diclofenac sodium 1 % topical gel 4 g topical QID back pain #50 grams 03/25/25 Rx (Voltaren Arthritis Pain) hydromorphone 2 mg tablet 2 mg PO Q3HWA PRN breakthrough 03/25/25 Rx (Dilaudid) pain #14 tabs ibuprofen 600 mg tablet 600 mg PO Q8H PRN pain #30 tabs 03/25/25 Rx Hospital Stay Data Consultations 03/23/25 17:01 ED Decision to Admit Stat 03/23/25 17:14 Consult Urology Routine Procedures Performed Operation Date: 03/24/25 09:30 Actual Procedures p Cystoscopy, Ureteroscopy, Retrograde Pyelogram, Laser Lithotripsy, Basket Extraction, Insertion of Stent Catheter- Left(Left) - Buddy Loco MD Diagnostic Imagining Performed 03/24/25 FL retrograde includes kub Routine Pending Results Patient Have Any Pending Studies at Discharge: No Discharge Instructions Given to Patient (Per Discharging Provider) 1. Please follow up with PCP and nephrology. 2. Please take pain medication and other medications as prescribed. 3. Please stay hydrated! Total Time Total Time Spent Total Time Spent (In Minutes): I spent a total of 35 minutes in direct patient care, including [id number] time with the patient and/or family, reviewing medical records, ordering and reviewing diagnostic tests, and coordinating care with other healthcare providers. This time includes: history taking, physical examination, medical decision making, counseling, ECG interpretation, imaging interpretation, lab interpretation, orders, and education, excluding time spent in the performance o f separately billed services.
--- NOTE | 2025-03-25 12:42 | Hospitalist Progress Note ---
Date of Service March 25, 2025 Assessment & Plan (1) Ureteral stone with hydronephrosis: Plan: -"4 mm distal left ureteral calculus with mild left hydronephrosis and delayed left nephrogram. Moderate left perinephric and periureteral fluid." -patient declined intervention 2 days ago, agreed to it yesterday, stent removed at bedside this morning -per patient still having left sided back pain post stent removal Plan: -urology consult, appreciate recs -pain control with dilaudid PO for severe pain, IV for breakthrough pain, tylenlol for headache -continue tamulosin -recheck CT abdomen/pelvis without contrast -IV toradol for inflammation -per urology ok for discharge home, will discharge after imaging and pain control (2) UTI (urinary tract infection): Plan: -finish 5 day course of abx Plan I spent a total of 45 minutes in direct patient care, including [id number] time with the patient and/or family, reviewing medical records, ordering and reviewing diagnostic tests, and coordinating care with other healthcare providers. This time includes: history taking, physical examination, medical decision making, counseling, ECG interpretation, imaging interpretation, lab interpretation, orders, and education, excluding time spent in the performance of separately billed services. Admission and Anticipated Discharge Date Admission Date: March 23, 2025 Subjective Patient seen and examined at bedside. Patient states that he is still having back pain on the left back even after stent placement and removal. Review of Systems Review of Systems: CONSTITUTIONAL: Patient denies fevers, chills, sweats and weight changes. EYES: Patient denies any visual symptoms. EARS, NOSE, AND THROAT: No difficulties with hearing. No symptoms of rhinitis or sore throat. CARDIOVASCULAR: Patient denies chest pains, palpitations, orthopnea and paroxysmal nocturnal dyspnea. RESPIRATORY: No dyspnea on exertion, no wheezing or cough. GI: No nausea, vomiting, diarrhea, constipation, abdominal pain, hematochezia or melena. : No urinary hesitancy or dribbling. No nocturia or urinary frequency. No abnormal urethral discharge. MUSCULOSKELETAL: left sided flank pain NEUROLOGIC: No chronic headaches, no seizures. Patient denies numbness, tingling or weakness. PSYCHIATRIC: Patient denies problems with mood disturbance. No problems with anxiety. ENDOCRINE: No excessive urination or excessive thirst. DERMATOLOGIC: Patient denies any rashes or skin changes. Physical Exam Physical Exam: Gen: A&O 3 NAD HEENT: NCAT, EOMI, not icteric. External ears normal. No rhinorrhea. Moist mucous membranes. Neck: Supple, full range of motion, no observable masses, No meningeal sign. Lungs: No Respiratory distress. CV: RRR, no edema. Abdomen: Soft, nondistended, No rebound tenderness. MSK: No joint swelling, no redness. improved back pain this morning but CVA tenderness noted on left side Skin: No rashes, petechiae, lesions. Normal color per patient. Neuro: Normal Gait, Grossly intact. Psych: Appropriate for situation. Results & Data Results & Data Vital Signs (Past 12 Hours) Vital Signs Temp Pulse Resp BP Pulse Ox O2 Del Method 03/25/25 11:19 37.1 C 55 L 16 136/99 98 Room Air 03/25/25 07:14 36.7 C 60 16 144/87 H 96 Room Air 03/25/25 03:32 37.1 C 68 12 137/91 96 Room Air Laboratory Results -personally reviewed, creatinine stable, leukocytosis downtrending Medications Administered Acetaminophen (Acetaminophen 500 Mg Tab) 1,000 mg PO Q8H PRN PRN Reason: Headache Stop: 04/23/25 18:36 Last Admin: 03/25/25 11:54 Dose: 1,000 mg Documented By: Admin: 03/25/25 03:38 Dose: 1,000 mg Documented By: Admin: 03/24/25 20:04 Dose: 1,000 mg Documented By: OTTONIEL Hydromorphone HCl (Hydromorphone Hcl 2 Mg Tab) 2 mg PO Q3HWA PRN PRN Reason: Severe Pain (Scale 7, 8, 9,10) Stop: 04/07/25 16:02 Last Admin: 03/24/25 19:14 Dose: 2 mg Documented By: OTTONIEL Hydromorphone HCl (Hydromorphone Inj 0.5 Mg/0.5 Ml Syr) 0.5 mg IV Q3HWA PRN PRN Reason: Breakthrough Pain Stop: 04/07/25 09:23 Last Admin: 03/25/25 12:16 Dose: 0.5 mg Documented By: CELINA Lactated Ringer's (Lr) 1,000 mls @ 125 mls/hr IV .Q8H DEEJAY Stop: 03/26/25 17:14 Last Admin: 03/25/25 06:28 Dose: 125 mls/hr Documented By: Infusion: 03/25/25 06:00 Dose: Infused Documented By: Admin: 03/24/25 21:50 Dose: 125 mls/hr Documented By: Infusion: 03/24/25 21:49 Dose: Infused Documented By: Admin: 03/24/25 13:24 Dose: 125 mls/hr Documented By: Infusion: 03/24/25 13:05 Dose: Infused Documented By: Infusion: 03/24/25 12:31 Dose: 125 mls/hr Documented By: Infusion: 03/24/25 10:37 Dose: 0 mls/hr Documented By: Admin: 03/24/25 03:11 Dose: 125 mls/hr Documented By: Infusion: 03/24/25 03:10 Dose: Infused Documented By: Admin: 03/23/25 19:25 Dose: 125 mls/hr Documented By: OTTONIEL Ceftriaxone Sodium (Rocephin) 2,000 mg in 50 mls @ 100 mls/hr IV Q24H DEEJAY Stop: 03/30/25 17:29 Last Infusion: 03/24/25 18:02 Dose: Infused Documented By: Admin: 03/24/25 17:24 Dose: 100 mls/hr Documented By: Infusion: 03/23/25 20:00 Dose: Infused Documented By: Admin: 03/23/25 19:26 Dose: 100 mls/hr Documented By: OTTONIEL Ondansetron HCl (Ondansetron Inj 2 Mg/Ml 2 Ml Vial) 4 mg IV Q6H PRN PRN Reason: Nausea Stop: 04/22/25 18:10 Last Admin: 03/24/25 06:33 Dose: 4 mg Documented By: OTTONIEL Tamsulosin HCl (Tamsulosin Hcl 0.4 Mg Cap) 0.4 mg PO HS DEEJAY Stop: 04/22/25 20:59 Last Admin: 03/24/25 20:04 Dose: 0.4 mg Documented By: Admin: 03/23/25 21:34 Dose: 0.4 mg Documented By: OTTONIEL
[2025-03-25] MEDS: KETOROLAC TROMETHAMINE 15 MG/ML VIAL IV ONE (12:47)
--- NOTE | 2025-03-25 14:51 | CT Scan Report ---
Exam: CT abdomen/pelvis without contrast Reason for exam: Ongoing CVA tenderness despite stent removal. Previous studies available: None FINDINGS: The lower lung zones show minimal atelectasis. Liver, pancreas and spleen are unremarkable and unenhanced studies. Adrenal glands unremarkable. Right kidney unremarkable in unenhanced images. The left kidney shows mild swelling and perinephric edema moderate hydronephrosis. The left ureter is distended and there is a minimally radiopaque debris/gravel suggested that the most distal left ureter just above the ureterovesicular junction. The urinary bladder is moderately distended and contains some intraluminal gas. Otherwise no radiopaque calculi seen at this time. No evidence of bowel obstruction or free air is seen. IMPRESSION: 1. Moderate left hydronephrosis and hydroureter with the perinephric edema. Some slightly radiopaque material is seen in the distalmost left ureter just above the left ureterovesicular junction which may indicate a residual tiny calculi and/or gravel. No previous studies are available for comparison at this time. 2. Moderately distended urinary bladder with intraluminal gas. Electronically signed by Silvano Plata 03-25-2025 2:51 PM
[2025-03-25 15:40] VITALS: BP 153/93
== END 2025-03-25 16:13 | disposition home or self-care (01) ==
LOC: ED 16:12 → 3N 16:12